=== PATIENT | female | born 1990 | race Caucasian/White ===

== ENCOUNTER 2016-12-20 03:25 | Emergency (ER) | payer BC ==
[~2016-12-20] VITALS: Ht 170.2 cm; Wt 61.2 kg
--- NOTE | 2016-12-20 03:40 | NUR ---
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 PT IS UNABLE TO GIVE A URINE SAMPLE AT THIS TIME. PT AMBULATED TO ER BED #6 WITH A STEADY GAIT. PT'S FAMILY IS AT THE BEDSIDE.
--- NOTE | 2016-12-20 03:49 | NUR ---
RADIOLOGY CALLED RE: US AND CT. US TECH BEING CALLED NOW.
--- NOTE | 2016-12-20 03:49 | NUR ---
CALLED LAB RE: BLOOD DRAW.
--- NOTE | 2016-12-20 03:50 | NUR ---
STEPHANIE, PROFILING MACHINE SET UP OPERATOR TOOL, IS AT THE BEDSIDE FOR BLOOD DRAW.
--- NOTE | 2016-12-20 03:53 | NUR ---
PT IS REFUSING VAGINAL US. DR. CAMPOVERDE NOTIFIED.
[2016-12-20 04:04] LABS: BASOPHILS % (AUTO) 0.2 % (0.0-2.0); EOSINOPHILS % (AUTO) 0.1 % (0.0-6.0); HEMATOCRIT 29 % (33-45); HEMOGLOBIN 9.3 g/dL (11.5-14.8); LYMPHOCYTES # (AUTO) 2.7 /CMM (0.8-4.8); LYMPHOCYTES % (AUTO) 43.9 % (20.0-44.0); MEAN CORPUSCULAR HEMOGLOBIN 23 PG (26.0-33.0); MEAN CORPUSCULAR HGB CONC 32 g/dl (31.0-36.0); MEAN CORPUSCULAR VOLUME 73 fL (82-100); MONOCYTES # (AUTO) 0.5 /CMM (0.1-1.30); MONOCYTES % (AUTO) 7.7 % (2.0-12.0); NEUTROPHILS % (AUTO) 48.1 % (43.0-81.0); PLATELET COUNT (AUTO) 288 /CMM (150-450); RDW COEFFICIENT OF VARIATION 17.5 (11.5-15.0); RED BLOOD CELL COUNT(AUTO) 4.04 MIL/uL (4.0-5.2); WHITE BLOOD COUNT (AUTO) 6.2 K/uL (4.3-11.0)
[2016-12-20 04:24] LABS: ALBUMIN 3.2 g/dL (3.4-5.0); BILIRUBIN,DIRECT 0.1 mg/dL (0.0-0.2); BILIRUBIN,TOTAL 0.2 mg/dL (0.2-1.0); CALCIUM, SERUM 8.5 mg/dL (8.5-10.1); CREATININE 0.6 mg/dL (0.6-1.3); POTASSIUM 3.8 mmol/L (3.5-5.1); TOTAL PROTEIN, SERUM 6.8 g/dL (6.4-8.2)
--- NOTE | 2016-12-20 04:32 | NUR ---
CALLED RADIOLOGY RE: PT'S HCG NEGATIVE. PT IS READY FOR CT.
--- NOTE | 2016-12-20 04:37 | NUR ---
PT IS GOING TO CT VIA .
--- NOTE | 2016-12-20 04:50 | NUR ---
PT RETURNED FROM CT VIA WC.
--- NOTE | 2016-12-20 05:06 | NUR ---
CALLED RADIOLOGY RE: US TECH. US TECH IS IN RADIOLOGY.
--- NOTE | 2016-12-20 05:08 | NUR ---
US IN PROGRESS AT THE BEDSIDE.
--- NOTE | 2016-12-20 05:23 | NUR ---
US FINISHED AT THE BEDSIDE.
--- NOTE | 2016-12-20 05:35 | NUR ---
PT REC'D A WARM BLANKET.
--- NOTE | 2016-12-20 05:44 | NUR ---
DR. CAMPOVERDE IS AT THE BEDSIDE SPEAKING TO THE PT AND HER FAMILY.
--- NOTE | 2016-12-20 05:44 | NUR ---
Patient discharged to home in stable condition. Written and verbal after care instructions given. Patient verbalizes understanding of instruction AND RX. PT AMBULATED OUT WITH A STEADY GAIT. VSS.
[2016-12-20 05:51] VITALS: BP 104/62
== END 2016-12-20 05:52 | disposition home or self-care (01) ==
LOC: ER 03:28
DX: K59.00 Constipation, unspecified (principal); E03.9 Hypothyroidism, unspecified; Z88.1 Allergy status to other antibiotic agents; Z88.8 Allergy status to other drugs, medicaments and biological substances
CPT/HCPCS: 36415; 72128-TC; 76856-TC; 80048-TC; 80076-TC; 83690-TC; 84703-TC; 85025-TC; A4606; Z7610